=== PATIENT | female | born 1975 | race Caucasian/White ===

== ENCOUNTER → 2020-03-19 12:03 | Outpatient (CLI) | payer OTHER, SELFPAY ==
--- NOTE | ~2020-03-19 | XR_ITS ---
EXAMINATION: XR chest 2V 03/19/2020 13:37 INDICATION: Dyspnea PROCEDURE: 2 view chest COMPARISON: No prior studies for comparison. FINDINGS: The lungs are clear. The cardiomediastinal silhouette is within normal limits. There are no pleural effusions. There is no pneumothorax suspected. IMPRESSION: 1: NO ACUTE CARDIOPULMONARY DISEASE. Reviewed, dictated and finalized at location B.
== END ==
DX: R06.00 Dyspnea, unspecified (principal)
CPT/HCPCS: 71046

== ENCOUNTER → 2020-05-14 15:58 | Outpatient (CLI) | payer OTHER, SELFPAY ==
--- NOTE | ~2020-05-14 | MM_ITS ---
EXAMINATION: MM screening [facility] BI w darin HISTORY: Screening TECHNIQUE: Craniocaudal and mediolateral oblique 3-D tomosynthesis images were obtained and synthetic 2-D images were generated. CAD analysis was submitted and interpreted. COMPARISON: Comparison to multiple prior studies sequentially, with oldest reviewed study dated 08/03. BREAST PARENCHYMAL COMPOSITION: The breasts are extremely dense, which lowers the sensitivity of mamm ography. FINDINGS: There is no evidence of suspicious mass, calcification, or architectural distortion to sugg est malignancy in either breast. There has been no suspicious interval change. IMPRESSION: 1. No mammographic evidence of malignancy. 2. Recommend routine screening mammography in one year. BI-RADS Category 1: Negative Reviewed, dictated and finalized at location A.
== END ==
PROVIDERS: PCP Family Medicine; Visit Provider Obstetrics & Gynecology
DX: Z12.31 Encounter for screening mammogram for malignant neoplasm of breast (principal)
CPT/HCPCS: 77063; 77067

== ENCOUNTER → 2021-05-18 16:37 | Outpatient (CLI) | payer BC, SELFPAY ==
--- NOTE | ~2021-05-18 | MM_ITS ---
EXAMINATION: MM screening [facility] BI w darin HISTORY: Screening TECHNIQUE: Craniocaudal and mediolateral oblique 3-D tomosynthesis images were obtained and synthetic 2-D images were generated. CAD analysis was submitted and interpreted. COMPARISON: Comparison to multiple prior studies sequentially, with oldest reviewed study dated 08/03. BREAST PARENCHYMAL COMPOSITION: The breasts are extremely dense, which lowers the sensitivity of mamm ography. FINDINGS: There is no evidence of suspicious mass, calcification, or architectural distortion to sugg est malignancy in either breast. There has been no suspicious interval change. IMPRESSION: 1. No mammographic evidence of malignancy. 2. Recommend routine screening mammography in one year. BI-RADS Category 1: Negative Reviewed, dictated and finalized at location A.
== END ==
PROVIDERS: Visit Provider Obstetrics & Gynecology
DX: Z12.31 Encounter for screening mammogram for malignant neoplasm of breast (principal)
CPT/HCPCS: 77063; 77067

== ENCOUNTER → 2022-01-16 16:37 | Outpatient (CLI) | payer BC, SELFPAY ==
--- NOTE | ~2022-01-16 | XR_ITS ---
EXAM: XR hand LT min 3V, XR hand RT min 3V HISTORY: Arthritis . Nodule on finger. COMPARISON: Left and right wrists 12/17/17. FINDINGS: Normal mineralization. No fracture or dislocation. No lytic or blastic lesion. Mild left a nd moderate right radiocarpal and capitolunate narrowing. No scapholunate widening. No erosion or per iosteal change. Soft tissues within normal limits. IMPRESSION: Moderate right and mild left degenerative changes in the radiocarpal and capitolunate sg nts, may reflect early changes of SLAC wrist bilaterally. Reviewed, dictated and finalized at location K. IMPRESSION: Moderate right and mild left degenerative changes in the radiocarpa l and capitolunate joints, may reflect early changes of SLAC wrist bilaterally.
== END ==
DX: M19.042 Primary osteoarthritis, left hand (principal); M19.041 Primary osteoarthritis, right hand
CPT/HCPCS: 73130

== ENCOUNTER → 2022-05-22 16:55 | Outpatient (CLI) | payer BC, SELFPAY ==
--- NOTE | ~2022-05-22 | MM_ITS ---
EXAMINATION: MM screening [facility] BI w darin HISTORY: Screening mammogram TECHNIQUE: Craniocaudal and mediolateral oblique 3-D tomosynthesis images were obtained and synthetic 2-D images were generated. CAD analysis was submitted and interpreted. COMPARISON: 05/18/2021, 05/14/2020, 11/15/2018 BREAST PARENCHYMAL COMPOSITION: The breasts are heterogeneously dense, which may obscure small masses . FINDINGS: There is no suspicious mass, calcification, or architectural distortion to suggest malignan cy in either breast. There has been no suspicious interval change. IMPRESSION: 1. No mammographic evidence of malignancy. 2. Recommend routine screening mammography in one year. BI-RADS Category 1: Negative Reviewed, dictated and finalized at location A.
== END ==
PROVIDERS: PCP Obstetrics & Gynecology; Visit Provider Obstetrics & Gynecology
DX: Z12.31 Encounter for screening mammogram for malignant neoplasm of breast (principal)
CPT/HCPCS: 77063; 77067

== ENCOUNTER 2023-01-26 01:13 | Day surgery (SDC) | payer BC, SELFPAY ==
[2023-01-10 13:05] VITALS: BMI 20.9
[2023-01-26 07:58] VITALS: BP 119/76; PULSE 100; RESP 16; TEMP 36.2; O2SAT 99
[2023-01-26] MEDS: LACTATED RINGERS 1,000 ML 150 ML IV CONT (08:07)
--- NOTE | 2023-01-26 08:36 | PM.HPGS ---
History of Present Illness History of Present Illness Consent: Risks, benefits, and alternatives have been discussed and questions answered. Patient agrees to proceed with procedure. Chief complaint: neoplasm screening Narrative: Aaron Hinojosa is a 47 year old female presents for screening colonoscopy. Patient's current weight appetite and bowel movements are normal. Patient denies abdominal pain. She has had no bleeding. Family history Is significant that her mother has had colon polyps. Patient past medical history is significant for rheumatoid arthritis for which she takes methotrexate. Review of Systems Review of Systems: Review of systems noncontributory. [facility] Family History Family History (Updated 06/23/19 @ 11:29 by DOCTOR UNKNOWN) Mother Hypertension Family history of lupus erythematosus Patient's mother is in good health Family history of arthritis Sibling Patient's sister is in good health Social History Social History Smoking status: Never smoker Alcohol intake: current Substance use: never Substance use type: does not use Living arrangements: with family Spiritual care concerns: No Meds Home Medications and Allergies Home Medications Medication Instructions Recorded Confirmed Type Nac 1 tab-cap PO DAILY 01/10/23 01/26/23 History cetirizine 10 mg capsule (Zyrtec) 10 mg PO DAILY 01/10/23 01/26/23 History cholecalciferol (vitamin D3) 50 50 mcg PO DAILY 01/10/23 01/26/23 History mcg (2,000 unit) tablet (Vitamin D3) folic acid 1 mg tablet 1 mg PO DAILY 01/10/23 01/26/23 History l.norgest-eth.estradiol triphasic 1 tablet PO DAILY 01/10/23 01/26/23 History 50-30 (6)/75-40(5)/125-30(10) tablet (Enpresse) mag citrate-potassium citrate 1 tab-cap PO BID 01/10/23 01/26/23 History methotrexate sodium 2.5 mg tablet 7.5 mg PO WEEKLY 01/10/23 01/26/23 History minoxidil 2.5 mg tablet 2.5 mg PO DAILY 01/10/23 01/26/23 History multivitamin with minerals 1 tablet PO DAILY 01/10/23 01/26/23 History (Hair,Skin and Nails tablet) naltrexone 3.5 mg PO DAILY 01/10/23 01/26/23 History naproxen 500 mg tablet 500 mg PO BID PRN Pain 01/10/23 01/26/23 History vitamin B complex 1 tablet PO DAILY 01/10/23 01/26/23 History Allergies Allergy/AdvReac Type Severity Reaction Status Date / Time No Known Allergies Allergy Verified 01/26/23 07:55 Vital Signs Vital Signs - 24 hr 01/26/23 07:58 Temperature 97.2 F L Pulse Rate 100 Respiratory Rate 16 Blood Pressure 119/76 Pulse Oximetry 99 Oxygen Delivery Room Air Exam Narrative: Physical exam reveals patient to be alert. Vital signs stable. HEENT exam is unremarkable. Patient is anicteric. Lungs are clear to auscultation and percussion. Heart is without murmur or extra sounds. Abdomen bowel sounds are present soft nontender with no organomegaly. Digital external rectal exam is normal. Assessment and Plan Assessment and plan (1) Family history of colonic polyps: Code(s): Z83.71 - Family history of colonic polyps Status: Acute Assessment and Plan: Patient presents today for screening colonoscopy. Her mother has colon polyps. Plan for surveillance colonoscopy now and consider this a 5 year intervals in the future.
--- NOTE | 2023-01-26 08:54 | P.PNAN_ITS ---
Anes - Initial Pre Proc Eval Procedure: Operation Date: 01/26/23 09:00 Proposed Procedures p Screening Colonoscopy - Levon Tyler MD Date/Time: 01/26/23 08:54 Surgeon: Levon Tyler MD Pre Op Diagnosis: neoplasm screening Patient Data Age: 47 Gender: F Height: 1.65 m Weight: 53.6 kg Last Vital Signs Temp 97.2 F L 01/26/23 07:58 Pulse 100 01/26/23 07:58 Resp 16 01/26/23 07:58 BP 119/76 01/26/23 07:58 Pulse Ox 99 01/26/23 07:58 O2 Del Method Room Air 01/26/23 07:58 Allergies Allergy/AdvReac Type Severity Reaction Status Date / Time No Known Allergies Allergy Verified 01/26/23 07:55 Home Medications Medication Instructions Recorded Confirmed Type Nac 1 tab-cap PO DAILY 01/10/23 01/26/23 History cetirizine 10 mg capsule (Zyrtec) 10 mg PO DAILY 01/10/23 01/26/23 History cholecalciferol (vitamin D3) 50 50 mcg PO DAILY 01/10/23 01/26/23 History mcg (2,000 unit) tablet (Vitamin D3) folic acid 1 mg tablet 1 mg PO DAILY 01/10/23 01/26/23 History l.norgest-eth.estradiol triphasic 1 tablet PO DAILY 01/10/23 01/26/23 History 50-30 (6)/75-40(5)/125-30(10) tablet (Enpresse) mag citrate-potassium citrate 1 tab-cap PO BID 01/10/23 01/26/23 History methotrexate sodium 2.5 mg tablet 7.5 mg PO WEEKLY 01/10/23 01/26/23 History minoxidil 2.5 mg tablet 2.5 mg PO DAILY 01/10/23 01/26/23 History multivitamin with minerals 1 tablet PO DAILY 01/10/23 01/26/23 History (Hair,Skin and Nails tablet) naltrexone 3.5 mg PO DAILY 01/10/23 01/26/23 History naproxen 500 mg tablet 500 mg PO BID PRN Pain 01/10/23 01/26/23 History vitamin B complex 1 tablet PO DAILY 01/10/23 01/26/23 History Patient hx anesthesia problems: none Family hx anesthesia problems: none Results Review: All pre-operative results and documents have been reviewed as part of the pre- operative evaluation. [facility] Family History Family History (Updated 06/23/19 @ 11:29 by DOCTOR UNKNOWN) Mother Hypertension Family history of lupus erythematosus Patient's mother is in good health Family history of arthritis Sibling Patient's sister is in good health Social History Social History Smoking status: Never smoker Alcohol intake: current Substance use: never Substance use type: does not use Living arrangements: with family Spiritual care concerns: No Anes - Eval Final PreProcedure Day of Procedure 01/26/23 08:54 Patient weight: normal Heart: regular rate and rhythm Lungs: clear to auscultation Airway: Mallampati scale class II Neurological: alert and oriented Last oral intake: >/= 8 hours ASA classification: II Emergent: no Anesthetic plan: proceed Anesthesia type and monitoring: general GIVS and standard monitoring Results Review: All pre-operative results and documents have been reviewed as part of the pre- operative evaluation. Informed Consent: The patient's anesthetic plan and its attendant risks and benefits were discussed with the patient/family/POA. Questions were solicited and answers provided to the satisfaction of the patient/family/POA.
[2023-01-26 09:51] VITALS: BP 87/56; PULSE 78; RESP 19; O2SAT 97
[2023-01-26 10:01] VITALS: BP 99/61; PULSE 78; RESP 19; O2SAT 99
[2023-01-26 10:11] VITALS: BP 109/69; PULSE 75; RESP 20; O2SAT 98
== END 2023-01-26 10:25 | disposition home or self-care (01) ==
PROVIDERS: Visit Provider Internal Medicine Gastroenterology
PROC: 0DJD8ZZ Inspection of Lower Intestinal Tract, Via Natural or Artificial Opening Endoscopic (ICD-10-PCS; CPT 45378; principal; 2023-01-26 09:00)
DX: Z12.11 Encounter for screening for malignant neoplasm of colon (principal); K64.8 Other hemorrhoids; Z83.71 Family history of colonic polyps
CPT/HCPCS: 45378; J2001; J2704; J7120

== ENCOUNTER → 2023-02-06 16:12 | Outpatient (CLI) | payer BC, SELFPAY ==
--- NOTE | ~2023-02-06 | XR_ITS ---
EXAMINATION: XR hand RT 2V INDICATION: Seropositive rheumatoid arthritis TECHNIQUE: Two views of the right hand are obtained. COMPARISON: 01/16/2022 FINDINGS: Bone alignment is normal. There is no fracture. There is mild osteoarthritis of multiple co ngenital joints. Radiocarpal and scapholunate osteoarthritis is again noted. The soft tissues are unr emarkable. IMPRESSION: 1. Osteoarthritis without acute osseous abnormality. Reviewed, dictated and finalized at location F.
--- NOTE | ~2023-02-06 | XR_ITS ---
EXAMINATION: XR hand LT 2V INDICATION: Seropositive rheumatoid arthritis TECHNIQUE: Two views of the right hand are obtained. COMPARISON: 01/16/2022 FINDINGS: There are marginal erosions at the radial aspect of the third and fourth proximal interphal angeal joints. Bone alignment is normal. There is no fracture. The soft tissues are unremarkable. IMPRESSION: 1. Marginal erosions of the third and fourth proximal interphalangeal joints, consistent with rheumat oid arthritis. Reviewed, dictated and finalized at location F. IMPRESSION: 1. Marginal erosions of the third and fourth proximal interphalangeal joints, c onsistent with rheumatoid arthritis.
--- NOTE | ~2023-02-06 | XR_ITS ---
EXAMINATION: XR foot RT 2V INDICATION: Seropositive rheumatoid arthritis TECHNIQUE: Two views of the right foot are obtained. COMPARISON: None available FINDINGS: Bone alignment is normal. There is no fracture. There is mild to moderate osteoarthritis of multiple interphalangeal joints. No definite erosions are seen. The soft tissues are unremarkable. IMPRESSION: 1. Osteoarthritis without acute osseous abnormality. Reviewed, dictated and finalized at location F.
--- NOTE | ~2023-02-06 | XR_ITS ---
EXAMINATION: XR foot LT 2V INDICATION: Seropositive rheumatoid arthritis TECHNIQUE: Two views of the left foot are obtained. COMPARISON: None available FINDINGS: There are erosions in the medial and lateral head of the fifth metatarsal. There is no frac ture. There is [id number] osteoarthritis of multiple interphalangeal joints. The soft tissues a re unremarkable. IMPRESSION: 1. Erosions at the fifth metatarsophalangeal joint, consistent with rheumatoid arthritis. Reviewed, dictated and finalized at location F.
--- NOTE | ~2023-02-06 | XR_ITS ---
EXAMINATION: XR chest 2V DATE: 02/06/2023 16:58 INDICATION: Seropositive rheumatoid arthritis TECHNIQUE: AP and lateral views of the chest are obtained. COMPARISON: 03/19/2020 FINDINGS: The lungs are free of acute opacities. No pleural effusion or pneumothorax. The cardiomedia stinal silhouette is normal. The visualized bones and soft tissues are unremarkable. IMPRESSION: 1. No acute cardiopulmonary abnormality. Reviewed, dictated and finalized at location F.
== END ==
PROVIDERS: PCP Internal Medicine; Visit Provider Physician Assistant
DX: M05.9 Rheumatoid arthritis with rheumatoid factor, unspecified (principal); M19.071 Primary osteoarthritis, right ankle and foot; M19.041 Primary osteoarthritis, right hand; R93.6 Abnormal findings on diagnostic imaging of limbs
CPT/HCPCS: 71046; 73120; 73620

== ENCOUNTER → 2023-03-23 07:51 | Outpatient (CLI) | payer BC, SELFPAY ==
--- NOTE | ~2023-03-23 | MR_ITS ---
MRI of the right hand CLINICAL HISTORY: Rheumatoid arthritis TECHNIQUE: Axial T1-weighted, T1 fat-sat, STIR, and T2 fat-sat images, coronal T1-weighted and STIR i mages, and sagittal T1-weighted and STIR images were acquired. Following intravenous administration o f 10 cc MultiHance gadolinium, T1-weighted fat-sat imaging was performed in the axial and sagittal pl anes. FINDINGS: There are extensive erosive changes in the carpal bones, especially involving the scaphoid, lunate, triquetrum, trapezium, as well as extensively involving the base of the first metacarpal. Th ere is extensive enhancing synovitis and pannus formation, especially about the radiocarpal articulat ions and first carpal metacarpal joint. The metacarpophalangeal and interphalangeal joints in the hand appear intact, without erosive or dege nerative change. No acute fracture or dislocation evident. Flexor and extensor tendons appear intact. IMPRESSION: Findings consistent with extensive inflammatory arthropathy involving the wrist and first carpal meta carpal joint, as detailed above, consistent with history of rheumatoid arthritis. The metacarpophalangeal and interphalangeal joints in the hand are intact. Reviewed, dictated and finalized at location . IMPRESSION: Findings consistent with extensive inflammatory arthropathy involving the wrist and first carpal metacarpal joint, as detailed above, consistent with history of rheumatoid arthritis. The metacarpophalangeal and interphalangeal joints in the hand are intact.
== END ==
PROVIDERS: PCP Physician Assistant; Visit Provider Physician Assistant
DX: M05.9 Rheumatoid arthritis with rheumatoid factor, unspecified (principal); M79.89 Other specified soft tissue disorders
CPT/HCPCS: 73220; A9577

== ENCOUNTER 2023-05-23 16:28 | Outpatient (CLI) | payer BC, SELFPAY ==
[2023-05-23 17:10] LABS: Hemoglobin 12.1 g/dL (12.0-15.0)
== END 2023-05-23 16:29 | disposition home or self-care (01) ==
LOC: ANHLAB 16:31
PROVIDERS: PCP Physician Assistant; Visit Provider Obstetrics & Gynecology
DX: R93.89 Abnormal findings on diagnostic imaging of other specified body structures (principal); Z01.818 Encounter for other preprocedural examination
CPT/HCPCS: 36415; 85014; 85018

== ENCOUNTER 2023-05-25 02:49 | Day surgery (SDC) | payer BC, SELFPAY ==
[2023-05-22 08:20] VITALS: BMI 20.7
--- NOTE | 2023-05-22 08:26 | PC.NURSE ---
Report to the Outpatient Waiting Room, entrance under the green pavilion located off [facility], at time 7:00 on date 05/25/23. Planned Procedure Time: 9:00. Time changes happen often and if your time is changed the preop area will call you the afternoon before. - You and your visitor will be asked to self-screen and do not enter if you have any COVID symptoms. - A mask is optional within the hospital at this time. Patients may have clear liquids (water, carbonated beverages, clear teas, apple juice) until 3 hours prior to surgery with a maximum of 20 ounces. - No food from midnight until time of surgery Take the following medications with a SIP of water the morning of surgery: NALTREXONE DO NOT STOP ANY OF YOUR OTHER PRESCRIPTION MEDICATIONS PRIOR TO SURGERY ?EXCEPT THE FOLLOWING Medications to discontinue per physician: VITAMINS/SUPPLEMENTS Date to take last dose: 05/21/23 Please no make-up, nail afghan, hairspray, perfume, deodorant, or body powder the day of surgery. No jewelry (including any body piercings) or valuables the day of surgery, leave them at home. Please take a shower or bath the night before, or the morning of, surgery with an antibacterial soap. Wear comfortable, loose fitting clothing. - Jewelry must be removed prior to entering the operating room. Rings and piercings that are not removed may be cut off. - The hospital will not accept responsibility for valuables. - Please leave all valuables, including medications, at home the day of surgery. If you are going home after surgery, a licensed motor coach driver must drive you home. - NO public transportation without another adult if you receive anesthesia. - We recommend that an adult stay with you for 24 hours following discharge. - We also recommend that you do not drive, make important decision, drink alcoholic beverages, or take any drugs that were not prescribed by your health care provider for at least 24 hours after your discharge time. Follow any additional instructions given to you from your surgeon. If you or anyone in your household have experienced Covid symptoms in the past week, please notify your surgeon or the nurse liaison at the phone number below for possible testing. Telephone instructions given to PT - GLADYS CLEMENTS and asked if any additional questions and then verbalized understanding. Patient advised to call surgeon office or pre surgery nurse liaison [phone] if any additional questions.
--- NOTE | 2023-05-23 07:48 | P.HP_ITS ---
H&P: HPI History of Present Illness Date/Time: 05/23/23 07:48 Chief Complaint: Pelvic pain and thickened endometrium Narrative: This 39 year female ultrasound endometrium was noted to be thickened and irregular. Complaints her pain she has had some spotty bleeding in between periods she will undergo hysteroscopy dilatation curettage. Risks and benefits reviewed including but not exclusive of , aspiration pneumonia, bleeding, transfusion, perforation of bowel, bladder, ureters, or other internal organs with need for open laparotomy. She received the A[employer] handouts entitled hysteroscopy as well as dilatation curettage respectively. She had all questions answered. She asked to proceed. [facility] Family History Family History Mother Hypertension Family history of lupus erythematosus Patient's mother is in good health Family history of arthritis Sibling Patient's sister is in good health Social History Social History Smoking status: Never smoker Alcohol intake: never Substance use: never Substance use type: does not use Living arrangements: with family Spiritual care concerns: No Meds Home Medications and Allergies Home Medications Medication Instructions Recorded Confirmed Type cetirizine 10 mg capsule (Zyrtec) 10 mg PO DAILY 01/10/23 05/22/23 History cholecalciferol (vitamin D3) 50 50 mcg PO DAILY 01/10/23 05/22/23 History mcg (2,000 unit) tablet (Vitamin D3) folic acid 1 mg tablet 1 mg PO DAILY 01/10/23 05/22/23 History l.norgest-eth.estradiol triphasic 1 tablet PO DAILY 01/10/23 05/22/23 History 50-30 (6)/75-40(5)/125-30(10) tablet (Enpresse) mag citrate-potassium citrate 1 tab-cap PO BID 01/10/23 05/22/23 History methotrexate sodium 2.5 mg tablet 7.5 mg PO WEEKLY 01/10/23 05/22/23 History minoxidil 2.5 mg tablet 2.5 mg PO DAILY 01/10/23 05/22/23 History multivitamin with minerals 1 tablet PO DAILY 01/10/23 05/22/23 History (Hair,Skin and Nails tablet) naltrexone 3.5 mg PO DAILY 01/10/23 05/22/23 History naproxen 500 mg tablet 500 mg PO BID PRN Pain 01/10/23 05/22/23 History vitamin B complex 1 tablet PO DAILY 01/10/23 05/22/23 History Allergies Allergy/AdvReac Type Severity Reaction Status Date / Time No Known Allergies Allergy Verified 05/22/23 08:19 Exam Const: General: cooperative, healthy appearing, comfortable and average body habitus Orientation/consciousness: oriented to person, oriented to place and oriented to time Resp: Effort & Inspection: normal respiratory effort Cardio: Rate: regular rate Rhythm: regular rhythm Heart sounds: S1 normal heart sound present and S2 normal heart sound present GI: Inspection: normal to inspection : External Female Exam: normal external appearance Speculum Exam - Vagina: normal appearance of the vagina Speculum Exam - Cervix: normal appearance of the cervix Bimanual exam- vagina & uterus: uterine shape normal and Uterine tenderness Bimanual Exam- Adnexa, other: normal adnexae Assessment and Plan Assessment and plan (1) Excessive bleeding: Code(s): R58 - Hemorrhage, not elsewhere classified Status: Acute Plan Hysteroscopy/dilatation curettage
[2023-05-25] VITALS (7 sets, daily range): BP systolic 92–129; BP diastolic 60–75; PULSE 63–86; RESP 12–16; TEMP 36.5–37.4; O2SAT 98–100
--- NOTE | 2023-05-25 06:35 | WPDHPUPDATE1 ---
History and Physical Update Update Date/Time: 05/25/23 06:35 History and Physical has been reviewed, including an updated exam of the patient. There are NO changes in the patient's condition. Risks, benefits, and alternatives have been discussed and questions answered. Patient agrees to proceed with procedure.
--- NOTE | 2023-05-25 07:58 | P.PNAN_ITS ---
Anes - Initial Pre Proc Eval Procedure: Operation Date: 05/25/23 09:00 Proposed Procedures p Hysteroscopy Dilation and Curettage - Ketan Abreu MD Date/Time: 05/25/23 07:58 Surgeon: Ketan Abreu MD Pre Op Diagnosis: thickened endometrium, abnorm. ultrasound Patient Data Age: 47 Gender: F Height: 1.65 m Weight: 56.7 kg Allergies Allergy/AdvReac Type Severity Reaction Status Date / Time No Known Allergies Allergy Verified 05/22/23 08:19 Home Medications Medication Instructions Recorded Confirmed Type cetirizine 10 mg capsule (Zyrtec) 10 mg PO DAILY 01/10/23 05/22/23 History cholecalciferol (vitamin D3) 50 50 mcg PO DAILY 01/10/23 05/22/23 History mcg (2,000 unit) tablet (Vitamin D3) folic acid 1 mg tablet 1 mg PO DAILY 01/10/23 05/22/23 History l.norgest-eth.estradiol triphasic 1 tablet PO DAILY 01/10/23 05/22/23 History 50-30 (6)/75-40(5)/125-30(10) tablet (Enpresse) mag citrate-potassium citrate 1 tab-cap PO BID 01/10/23 05/22/23 History methotrexate sodium 2.5 mg tablet 7.5 mg PO WEEKLY 01/10/23 05/22/23 History minoxidil 2.5 mg tablet 2.5 mg PO DAILY 01/10/23 05/22/23 History multivitamin with minerals 1 tablet PO DAILY 01/10/23 05/22/23 History (Hair,Skin and Nails tablet) naltrexone 3.5 mg PO DAILY 01/10/23 05/22/23 History naproxen 500 mg tablet 500 mg PO BID PRN Pain 01/10/23 05/22/23 History vitamin B complex 1 tablet PO DAILY 01/10/23 05/22/23 History Patient hx anesthesia problems: none Family hx anesthesia problems: none Results Review: All pre-operative results and documents have been reviewed as part of the pre- operative evaluation. [facility] Past Medical History Medical History (Updated 05/25/23 @ 07:58 by Ketan Wade MD) Rheumatoid arthritis SLE (systemic lupus erythematosus) Family History Family History Mother Hypertension Family history of lupus erythematosus Patient's mother is in good health Family history of arthritis Sibling Patient's sister is in good health Social History Social History Smoking status: Never smoker Alcohol intake: never Substance use: never Substance use type: does not use Living arrangements: with family Spiritual care concerns: No Anes - Eval Final PreProcedure Day of Procedure 05/25/23 07:58 Patient weight: thin Heart: regular rate and rhythm Lungs: clear to auscultation Airway: Mallampati scale class II Neurological: alert and oriented Last oral intake: >/= 8 hours ASA classification: III Emergent: no Anesthetic plan: proceed Anesthesia type and monitoring: general GIVS and standard monitoring Results Review: All pre-operative results and documents have been reviewed as part of the pre- operative evaluation. Informed Consent: The patient's anesthetic plan and its attendant risks and benefits were discussed with the patient/family/POA. Questions were solicited and answers provided to the satisfaction of the patient/family/POA.
[2023-05-25] MEDS: ACETAMINOPHEN 500 MG TABLET 1000 MG PO (08:00)
[2023-05-25] MEDS: LACTATED RINGERS 1,000 ML 30 ML IV CONT (08:00)
[2023-05-25] MEDS: LIDOCAINE HCL 1% LOCAL INJ 20 ML VIAL 10 ML INFILTRATE (09:02)
--- NOTE | 2023-05-25 09:14 | W.PM.PROC2 ---
Procedure Note - Detailed Date of Procedure 05/25/23 Pre-op Diagnosis thickened endometrium, abnorm. ultrasound Post-op Diagnosis Other (Uterine polyp) Procedure Performed Hysteroscopy/polypectomy/dilatation curettage Surgeon Ketan Abreu MD Anesthesia General and Local Indications This is a 47-year-old female with thickened endometrium on imaging Findings Uterine polyp. Otherwise fairly normal appearing endometrial tissue Description of Procedure Patient was prepped draped in the normal sterile fashion placed in the dorsal lithotomy position. Under excellent LMA anesthesia weighted speculum placed in posterior fornix vagina. Anterior lip of the cervix grasped with single-tooth tenaculum. 2.5cc 1% xylocaine anesthesia placed at 2, 4, 8, 10:00 a.m. of the cervix. Uterus sounded to 8cm. Serial dilatation with fragmented dilators performed followed passes the 4 5mm reviewed a hysteroscope using normal saline as visualizing medium. The uterine polyp was seen the rotating small instrument was placed and the polyp removed in completion. The uterus was then scraped over the entire 360? until good grating sound was heard. Instruments were then withdrawn the patient was awakened went to recovery in satisfactory condition. All sponge, needle, instrument counts were correct. There were no immediate complications Estimated Blood Loss 5 Drains No Packing No Pathology Yes Complications No immediate complications Condition Stable Disposition PACU
== END 2023-05-25 10:45 | disposition home or self-care (01) ==
PROVIDERS: PCP Physician Assistant; Visit Provider Obstetrics & Gynecology
PROC: 0U5B8ZZ Destruction of Endometrium, Via Natural or Artificial Opening Endoscopic (ICD-10-PCS; CPT 58563; principal; 2023-05-25 09:00)
DX: N84.0 Polyp of corpus uteri (principal); M06.9 Rheumatoid arthritis, unspecified; M32.9 Systemic lupus erythematosus, unspecified; Z79.631 Long term (current) use of antimetabolite agent
CPT/HCPCS: 58558; 36415; 85014; 85018; 88305; A9270; J2250; J3010; J7120

== ENCOUNTER → 2023-06-01 16:09 | Outpatient (CLI) | payer BC, SELFPAY ==
--- NOTE | ~2023-06-01 | MM_ITS ---
EXAMINATION: MM screening chepe BI w darin HISTORY: Screening mammogram TECHNIQUE: Craniocaudal and mediolateral oblique 3-D tomosynthesis images were obtained and synthetic 2-D images were generated. CAD analysis was submitted and interpreted. COMPARISON: 05/22/2022, 05/18/2021, 05/14/2020 bilateral screening mammogram examinations BREAST PARENCHYMAL COMPOSITION: The breasts are heterogeneously dense, which may obscure small masses . FINDINGS: There is no evidence of suspicious mass, calcification, or architectural distortion to sugg est malignancy in either breast. There has been no suspicious interval change. IMPRESSION: 1. No mammographic evidence of malignancy. 2. Recommend routine screening mammography in one year. BI-RADS Category 1: Negative Reviewed, dictated and finalized at location A.
== END ==
PROVIDERS: PCP Obstetrics & Gynecology; Visit Provider Obstetrics & Gynecology
DX: Z12.31 Encounter for screening mammogram for malignant neoplasm of breast (principal)
CPT/HCPCS: 77063; 77067

== ENCOUNTER 2024-04-26 07:30 | Outpatient (CLI) | payer BC, SELFPAY ==
--- NOTE | ~2024-04-26 | MR_ITS ---
EXAMINATION: MR brain/brain stem wo con DATE: 04/26/2024 08:13 INDICATION: Other amnesia. Word finding difficulty. TECHNIQUE: Magnetic resonance imaging (MRI) of the brain and brainstem was performed without intraven ous contrast. COMPARISON: None. FINDINGS: There is no intracranial hemorrhage, acute infarction, or abnormal intracranial mass lesion . There is a focus of increased T2-weighted signal intensity in the left frontal lobe white matter wh ich is normal as an isolated finding. The ventricles are normal in size. The paranasal sinuses are cl ear. The orbits are normal. The mastoid air cells are normal. IMPRESSION: 1. Normal brain. Reviewed, dictated and finalized at location A. IMPRESSION: 1. Normal brain.
== END 2024-04-26 07:31 ==
LOC: MICIMG 07:32
PROVIDERS: PCP Internal Medicine; Visit Provider Psychiatry & Neurology Neurology
DX: G31.84 Mild cognitive impairment of uncertain or unknown etiology (principal); M06.9 Rheumatoid arthritis, unspecified; M32.9 Systemic lupus erythematosus, unspecified; Z81.8 Family history of other mental and behavioral disorders; Z87.828 Personal history of other (healed) physical injury and trauma
CPT/HCPCS: 70551

== ENCOUNTER 2024-09-20 08:20 | Outpatient (CLI) | payer BC, SELFPAY ==
--- NOTE | ~2024-09-20 | MM_ITS ---
EXAMINATION: MM screening chepe BI w darin HISTORY: Screening TECHNIQUE: Craniocaudal and mediolateral oblique 3-D tomosynthesis images were obtained and synthetic 2-D images were generated. CAD analysis was submitted and interpreted. COMPARISON: Comparison to multiple prior studies sequentially, with oldest reviewed study dated 08/04. BREAST PARENCHYMAL COMPOSITION: Dense: The breasts are heterogeneously dense, which may obscure small masses FINDINGS: There is no evidence of suspicious mass, calcification, or architectural distortion to sugg est malignancy in either breast. There has been no suspicious interval change. IMPRESSION: 1. No mammographic evidence of malignancy. 2. Recommend routine screening mammography in one year. BI-RADS Category 1: Negative Reviewed, dictated and finalized at location A. [employer]
== END 2024-09-20 08:21 | disposition home or self-care (01) ==
PROVIDERS: PCP Obstetrics & Gynecology; Visit Provider Obstetrics & Gynecology
DX: Z12.31 Encounter for screening mammogram for malignant neoplasm of breast (principal)
CPT/HCPCS: 77063; 77067